=== PATIENT | female | born 1990 | race Hispanic/Latino ===

== ENCOUNTER 2019-06-21 14:57 | Observation (INO) | payer BC, MEDICAID ==
[~2019-06-21] VITALS: Ht 167.6 cm; Wt 109.3 kg
[~2019-06-21 14:57] MED LIST: ALBUTEROL INHALER; FERR-82 PO
[2019-06-21] MEDS: LACTATED RINGERS 1000ML 1,000 ML IV SCH ×2 (15:15→16:15)
[2019-06-21 15:49] LABS: APPEARANCE,URINE Clear (CLEAR); BILIRUBIN,URINE Negative (NEGATIVE); COLOR,URINE Yellow (YELLOW); GLUCOSE, URINE (UA) Negative (NEGATIVE); KETONES,URINE Negative (NEGATIVE); LEUKOCYTE ESTERASE ,URINE Trace (NEGATIVE); NITRATE,URINE Negative (NEGATIVE); OCCULT BLOOD,URINE Negative (NEGATIVE); PROTEIN,URINE Negative (NEGATIVE)
[2019-06-21 16:10] LABS: BACTERIA,URINE Moderate /HPF (None Seen); MUCUS,URINE Few LPF (None Seen)
[2019-06-21] MEDS ORDERED: CEFTRIAXONE SODIUM 1 GM IVP SCH (16:15)
[2019-06-21] MEDS ORDERED: LACTATED RINGERS 1000ML IV SCH (16:15)
[2019-07-12] MEDS ORDERED: PNV1TABL17 PO (15:47)
== END 2019-06-21 17:35 | disposition home or self-care (01) ==
LOC: EDH 14:57 → LDH 14:58
PROVIDERS: ADMIT Obstetrics & Gynecology; ATTEND Obstetrics & Gynecology
DX: O26.893 Other specified pregnancy related conditions, third trimester (principal); R10.2 Pelvic and perineal pain; O99.513 Diseases of the respiratory system complicating pregnancy, third trimester; J45.909 Unspecified asthma, uncomplicated; Z79.899 Other long term (current) drug therapy; Z3A.36 36 weeks gestation of pregnancy
CPT/HCPCS: 81001; 87088; 96374; 99283; G0378 ×3; J0696; J7120 ×2; 96360